=== PATIENT | male | born 2000 | race Caucasian/White ===

== ENCOUNTER 2021-06-22 12:43 | Emergency (ER) | payer BC ==
[~2021-06-22] VITALS: Ht 172.7 cm; Wt 106.6 kg
[2021-06-22] MEDS ORDERED: ACETAMINOPHEN 325 MG TAB PO ONE (14:30)
== END 2021-06-22 15:37 | disposition home or self-care (01) ==
LOC: ER 13:00
DX: R50.9 Fever, unspecified (principal); U07.1 COVID-19; R05.9 Cough, unspecified
CPT/HCPCS: 71045; 99283; U0002

== ENCOUNTER → 2022-10-17 | Outpatient (CLI) | payer BC | LOC: US 15:47 | PROVIDERS: ATTEND Internal Medicine | DX: R22.1 Localized swelling, mass and lump, neck (principal) | CPT/HCPCS: 76536 ==

== ENCOUNTER 2024-07-06 08:02 | Emergency (ER) | payer BC ==
[~2024-07-06] VITALS: Ht 175.3 cm; Wt 90.7 kg
[2024-07-06 08:10] VITALS: PULSE 88; RESP 17; TEMP 97.7; O2SAT 100
[2024-07-06] MEDS ORDERED: NAPROXEN250 MG PO (09:00)
[2024-07-06] MEDS ORDERED: ULTRAM 50MG50 MG PO (09:32)
== END 2024-07-06 09:52 | disposition home or self-care (01) ==
LOC: ER 08:05
DX: M79.642 Pain in left hand (principal); M79.641 Pain in right hand; S62.344A Nondisplaced fracture of base of fourth metacarpal bone, right hand, initial encounter for closed fracture; S62.346A Nondisplaced fracture of base of fifth metacarpal bone, right hand, initial encounter for closed fracture; W22.09XA Striking against other stationary object, initial encounter; Y92.89 Other specified places as the place of occurrence of the external cause; I10 Essential (primary) hypertension
CPT/HCPCS: 99283